=== PATIENT | female | born 2000 | race Caucasian/White ===

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

== ENCOUNTER 2023-06-04 00:47 | Emergency (ER) | payer BC ==
[~2023-06-04] VITALS: Ht 149.9 cm; Wt 66.6 kg
[~2023-06-04 00:47] MED LIST: ETON68IM
[2023-06-04 00:48] VITALS: BP 133/85; TEMP 98; O2SAT 98
== END 2023-06-04 05:43 | disposition left against medical advice (07) ==
LOC: M ED 00:47
DX: Z53.21 Procedure and treatment not carried out due to patient leaving prior to being seen by health care provider (principal)